=== PATIENT | male | born 1980 | race Caucasian/White ===

== ENCOUNTER 2017-08-17 17:32 | Emergency (ER) | payer SELFPAY ==
[2017-08-17 17:41] VITALS: BP 142/86; PULSE 71; RESP 18; TEMP 97.8; O2SAT 99
--- NOTE | 2017-08-17 18:19 | C.PDOC ---
History Of Present Illness 37 y/o M c no PMHx p/w cough productive of white sputum, congestion, bilateral eye redness all since yesterday. Feels febrile. Denies pain, vomiting, diarrhea , dysuria, chest pain, dyspnea, recent travel, sick contacts. Time Seen by Provider: 08/17/17 18:11 Chief Complaint (Nursing): Flu-like Symptoms Past Medical History Vital Signs: Last Vital Signs Temp 97.8 F 08/17/17 17:38 Pulse 71 08/17/17 17:38 Resp 18 08/17/17 17:38 BP 142/86 08/17/17 17:38 Pulse Ox 99 08/17/17 17:38 Family History: States: No Known Family Hx - Social History Hx Alcohol Use: Yes Hx Substance Use: No - Immunization History Hx Tetanus Toxoid Vaccination: No Hx Influenza Vaccination: No Hx Pneumococcal Vaccination: No Review Of Systems Except As Marked, All Systems Reviewed And Found Negative. Cardiovascular: Negative for: Chest Pain Respiratory: Negative for: Shortness of Breath Physical Exam - Physical Exam Additional Physical Exam Comments: Gen: NAD Head: NC/AT Eyes: Injected bilaterally, no active discharge ENT: MMM, no tonsillar exudates. Neck: Supple. CV: Regular rate Resp: CTA b/l Abd: Soft, NT Back: No CVA tenderness Ext: No swelling Skin: No rash Neuro: Alert, no focal deficit ED Course And Treatment O2 Sat by Pulse Oximetry: 99 Medical Decision Making Medical Decision Making: Will start treatment for influenza. Continue OTC analgesia/antipyretic, oral hydration. I instructed the patient to return to the ED for worsening pain, fever, lethargy, vomiting, dyspnea, abdominal pain. Disposition - Disposition Referrals: [facility] [Outside] Disposition: HOME/ ROUTINE Disposition Time: 18:19 Condition: STABLE Prescriptions: Ibuprofen [Motrin] 1 tab PO Q6 #30 tab Oseltamivir Phosphate [Tamiflu] 75 mg PO BID #10 capsule Instructions: Upper Respiratory Infection (ED) - Clinical Impression Clinical Impression: URI (upper respiratory infection)
== END 2017-08-17 18:24 | disposition home or self-care (01) ==
LOC: C.ER 17:32
DX: J06.9 Acute upper respiratory infection, unspecified (principal)